=== PATIENT | male | born 1965 | race African-American/Black ===

== ENCOUNTER 2017-03-27 18:08 | Emergency (ER) | payer BC, OTHER ==
[~2017-03-27] VITALS: Ht 182.9 cm; Wt 100.0 kg
[2017-03-27 18:10] VITALS: BP 132/78; PULSE 87; RESP 20; TEMP 98.4; O2SAT 97
[2017-03-27] MEDS ORDERED: TETANUS/DIPHTHERIA TOXOID ADULT 0.5 ML VIAL IM ONE (19:00)
[2017-03-27] MEDS ORDERED: CEPH500C PO (19:20)
--- NOTE | 2017-03-27 19:24 | PD ---
HPI Chief Complaint: Laceration/Skin Injury Time Seen by Provider: 19:12 Travel History International Travel<30 days: No Contact w/Intl Traveler<30days: No Traveled to known affect area: No History of Present Illness HPI 52-year-old black male presents emergency department for a scalp injury which occurred prior to arrival. The patient states that he was cutting a limb when the limb came down hitting him in scalp. Patient states that he was not knocked unconscious. No neck or back pain. He sustained a laceration. He has not had a tetanus shot over 5 years. Pain is mild. No alleviating symptoms. Exacerbated by the tree limb. [facility] Past Medical History Narrative Medical Diabetes and hypertension Cardiovascular Problems: Yes Diabetes: Yes Tetanus Vaccination: > 5 Years Past Surgical History Surgical History: No Previous Surgery Social History Alcohol Use: Yes Tobacco Use: No Allergies-Medications (Allergen,Severity, Reaction): Coded Allergies: No Known Allergies (Unverified , 03/27/17) Reported Meds & Prescriptions Reported Meds & Active Scripts Active Cephalexin 500 Mg Cap 500 Mg PO Q6H Review of Systems Except as stated in HPI: all other systems reviewed are Neg Physical Exam Narrative GENERAL: Well-developed, well-nourished in no apparent distress. Nontoxic appearing. HEAD: Patient has a 1.5 cm laceration to the left frontal scalp. There is soft tissue tenderness. No bony step-off. No foreign body. Neurovascular intact. EYES: Pupils equal round and reactive. Extraocular motions intact. No scleral icterus. No injection or drainage. ENT: Nose clear. Throat without erythema, tonsillar hypertrophy or exudate. Uvula midline. Airway patent. NECK: Trachea midline. Supple, nontender, moves head freely. No central bony tenderness or spasm. CARDIOVASCULAR: Regular rate and rhythm without murmurs, gallops, or rubs. RESPIRATORY: Clear to auscultation. Breath sounds equal bilaterally. No wheezes , rales, or rhonchi. GASTROINTESTINAL: Abdomen soft, non-tender, nondistended. No hepato-splenomegaly , or palpable masses. No guarding. EXTREMITIES: No clubbing, cyanosis, or edema. No joint tenderness. BACK: Nontender without deformity. No flank tenderness. NEUROLOGICAL: Awake, alert and oriented x 3 .Cranial nerves grossly intact. Motor and sensory grossly within normal limits. Normal speech. Data Data Last Documented VS Vital Signs Date Time Temp Pulse Resp B/P (MAP) Pulse Ox O2 Delivery O2 Flow Rate FiO2 03/27/17 18:10 98.4 87 20 132/78 (96) 97 Room Air Orders Orders Tetanus/Diphtheria Tox Adult (Tetanus/Di (03/27/17 19:00) Cephalexin (Keflex) (03/27/17 19:30) Ed Discharge Order (03/27/17 19:20) Ibuprofen (Motrin) (03/27/17 19:30) MDM Medical Decision Making Medical Screen Exam Complete: Yes Emergency Medical Condition: Yes Medical Record Reviewed: Yes Differential Diagnosis MDM: High Differential diagnoses: Fracture, sprain, strain, dislocation, contusion, neurovascular injury Narrative Course I've discussed sutures versus no sutures with this patient. I have taken a picture of his laceration with his phone and he is viewed the laceration directly. He has opted for Glue. Patient given Keflex 500 mg by mouth, Motrin 600 mg by mouth and a tetanus immunization. The wound is cleansed and dressed. This is a scalp contusion, scalp laceration Procedures Procedure Narrative LACERATION LOCATION: Scalp LENGTH: 1.5 cm NUMBER OF STITCHES/LUIS ALBERTO: [Not applicable REPAIR: The area of the laceration was prepped with Betadine and sterilely draped. The wound was copiously irrigated and explored without evidence of foreign body, tendon injury or neurovascular injury. The wound was closed using Dermabond. This was a simple single layer repair. A sterile dressing was applied. The patient was advised to keep the dressing clean and dry. Patient tolerated the procedure well. Diagnosis Primary Impression: Scalp contusion Qualified Codes: S00.03XA - Contusion of scalp, initial encounter Additional Impression: scalp laceration Patient Instructions: General Instructions Additional Instructions: Rest. Head precautions. Tylenol or Advil for pain. Ice packs. Daily wound care with soap, older, Neosporin. Avoid alcohol. Avoid all sedating or intoxicating substances. Recheck with your physician within 2-3 days. Return to the ER for any problems. Med/Other Pt SpecificInfo: Prescription(s) given, Wound Care Scripts Cephalexin (Cephalexin) 500 Mg Cap 500 MG PO Q6H for Infection, #12 CAP 0 Refills Prov: Ramiro Gomez MD 03/27/17 Disposition: 01 DISCHARGE HOME Condition: Stable Willam Wilkerson Mar 27, 2017 19:24
[2017-03-27] MEDS ORDERED: IBUPROFEN 600 MG TAB PO ONE (19:30)
[2017-03-27] MEDS ORDERED: CEPHALEXIN MONOHYDRATE 500 MG CAP PO ONE (19:30)
== END 2017-03-27 19:58 | disposition home or self-care (01) ==
LOC: NEPD 18:08
DX: S01.01XA Laceration without foreign body of scalp, initial encounter (principal); E11.9 Type 2 diabetes mellitus without complications; I10 Essential (primary) hypertension; W22.8XXA Striking against or struck by other objects, initial encounter; Y93.H2 Activity, gardening and landscaping
CPT/HCPCS: 12001; 90471; 90714